=== PATIENT | female | born 1980 | race Caucasian/White ===

== ENCOUNTER 2021-10-11 19:35 | Emergency (ER) | payer SELFPAY ==
[~2021-10-11] VITALS: Ht 167.6 cm; Wt 72.7 kg
[2021-10-11 19:58] VITALS: BP 137/91
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
== END 2021-10-11 20:14 ==
LOC: ER 19:35
DX: Z04.1 Encounter for examination and observation following transport accident (principal)
CPT/HCPCS: 99283

== ENCOUNTER → 2021-10-11 | Outpatient (CLI) | payer SELFPAY | LOC: LAB 19:05 | PROVIDERS: ATTEND Internal Medicine Pulmonary Disease | DX: Z02.83 Encounter for blood-alcohol and blood-drug test (principal) | CPT/HCPCS: 36415 ==